=== PATIENT | male | born 1985 | race Caucasian/White ===

== ENCOUNTER 2018-01-08 01:11 | Emergency (ER) | payer OTHER, BC ==
--- NOTE | 2018-01-08 01:28 | EDM.PDOC ---
ED HPI GENERAL MEDICAL PROBLEM - General Stated Complaint: PAIN IN LOWER/MID RIGHT BACK Time Seen by Provider: 01/08/18 01:24 - History of Present Illness INITIAL COMMENTS - FREE TEXT/NARRATIVE: HISTORY AND PHYSICAL: History of present illness: Patient 32-year-old male presents status post fall in which he sustained an abrasion contusion to his right ribs this happened at work when he fell into a hole he denies other trauma or concern Review of systems: As per history of present illness and below otherwise all systems reviewed and negative. Past medical history: As per history of present illness and as reviewed below otherwise noncontributory. Surgical history: As per history of present illness and as reviewed below otherwise noncontributory. Social history: No reported history of drug or alcohol abuse. Family history: As per history of present illness and as reviewed below otherwise noncontributory. Physical exam: HEENT: Atraumatic, normocephalic, pupils reactive, negative for conjunctival pallor or scleral icterus, mucous membranes moist, throat clear, neck supple, nontender, trachea midline. Lungs: Clear to auscultation, breath sounds equal bilaterally, chest nontender. Patient has an area on his posterior ribs that's abraded there is no point tenderness or crepitation Heart: S1S2, regular, negative for clicks, rubs, or JVD. Abdomen: Soft, nondistended, nontender. Negative for masses or hepatosplenomegaly. Negative for costovertebral tenderness. Pelvis: Stable nontender. Genitourinary: Deferred. Rectal: Deferred. Extremities: Atraumatic, negative for cords or calf pain. Neurovascular unremarkable. Neuro: Awake, alert, oriented. Cranial nerves II through XII unremarkable. Cerebellum unremarkable. Motor and sensory unremarkable throughout. Exam nonfocal. Diagnostics: X-ray right ribs with chest UA Therapeutics: None Impression: #1 abrasion/contusion right ribs Definitive disposition and diagnosis as appropriate pending reevaluation and review of above. ED ROS GENERAL - Review of Systems Review Of Systems: ROS reveals no pertinent complaints other than HPI. ED EXAM, GENERAL - Physical Exam Exam: See Below (See dictation) Departure - Departure Time of Disposition: 01:27 Disposition: Home, Self-Care 01 Condition: Good Clinical Impression: Abrasion, Rib injury - Discharge Information Referrals: PCP,None [Primary Care Provider] - Additional Instructions: The following information is given to patients seen in the emergency department who are being discharged to home. This information is to outline your options for follow-up care. We provide all patients seen in our emergency department with a follow-up referral. The need for follow-up, as well as the timing and circumstances, are variable depending upon the specifics of your emergency department visit. If you don't have a primary care physician on staff, we will provide you with a referral. We always advise you to contact your personal physician following an emergency department visit to inform them of the circumstance of the visit and for follow-up with them and/or the need for any referrals to a consulting specialist. The emergency department will also refer you to a specialist when appropriate. This referral assures that you have the opportunity for followup care with a specialist. All of these measure are taken in an effort to provide you with optimal care, which includes your followup. Under all circumstances we always encourage you to contact your private physician who remains a resource for coordinating your care. When calling for followup care, please make the office aware that this follow-up is from your recent emergency room visit. If for any reason you are refused follow-up, please contact the [facility] emergency department at and asked to speak to the emergency department charge nurse. Motrin/Tylenol as directed push fluids follow-up occupational medicine return as needed as discussed
--- NOTE | 2018-01-10 14:14 | CR ---
EXAM DATE: 01/08/18 PATIENT'S AGE: 32 Patient: MICK SPAIN Facility: [place], [place] Site . Site : 1985 Study: XRay Chest Right ribs [id number]/24/2018 1:42:13 AM Ordering Physician: Doctor Sol Final Report: INDICATION: Patient states fell and hit right ribs, pain. TECHNIQUE: Chest radiograph, Rib radiographs 4 views right COMPARISON: None FINDINGS: Mediastinum: The heart silhouette is normal in size and morphology. The mediastinum is normal in appearance. Lungs: Both lungs are unremarkable in appearance. No sign of pleural effusion seen. No pneumothorax is identified. Ribs and bones: No definite acute rib fractures are identified in the visualized ribs. The remaining osseous structures are unremarkable for age. Soft tissue: Unremarkable. IMPRESSION: 1. No acute cardiopulmonary disease is seen. No acute rib injuries noted. Dictated by: Aaron Magaña MD @ 01/08/2018 01:45:40 (Electronic Signature) Report Signed by Proxy. [facility] Ann
== END 2018-01-08 02:14 | disposition home or self-care (01) ==
LOC: MW.ED 01:11
DX: S20.211A Contusion of right front wall of thorax, initial encounter (principal); W17.2XXA Fall into hole, initial encounter; Y99.0 Civilian activity done for income or pay
CPT/HCPCS: 71101-26-RT; 71101-RT; 81001; 99283